=== PATIENT | female | born 1995 | race Caucasian/White ===

== ENCOUNTER 2017-07-03 12:54 | Emergency (ER) | payer MEDICAID, OTHER ==
[2017-07-03 13:13] VITALS: BP 118/69
[2017-07-03] MEDS ORDERED: Ibuprofen 600 MG Tab PO ONE (13:54)
[2017-07-03] MEDS ORDERED: traMADol 50 MG Tab PO ONE (13:54)
[2017-07-03] MEDS ORDERED: Amoxicillin 500 MG Cap PO ONE (13:54)
--- NOTE | 2017-07-03 14:12 | EDM.PDOC ---
ED HPI GENERAL MEDICAL PROBLEM - General Chief Complaint: ENT Problem Stated Complaint: TEETH HURTING Time Seen by Provider: 07/03/17 13:36 Source of Information: Reports: Patient History Limitations: Reports: No Limitations - History of Present Illness INITIAL COMMENTS - FREE TEXT/NARRATIVE: Patient presents with tooth pain that started this morning. She has had problems with her teeth for many months and thinks it is because her wisdom teeth are coming in and causing too much crowding. She has lost two teeth completely because of this. She denies fever. She hasn't been able to see a dentist since she doesn't have dental insurance. 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 Musculoskeletal History: Reports: Fracture Psychiatric History: Reports: None - Past Surgical History Head Surgeries/Procedures: Reports: None Respiratory Surgical History: Reports: None Musculoskeletal Surgical History: Reports: None Dermatological Surgical History: Reports: None Social & Family History - Family History Family Medical History: Noncontributory - Tobacco Use Smoking Status *Q: Current Every Day Smoker Years of Tobacco use: 10 Packs/Tins Daily: 0.5 Second Hand Smoke Exposure: No - Caffeine Use Caffeine Use: Reports: Coffee, Energy Drinks, Soda, Tea - Recreational Drug Use Recreational Drug Use: Yes Drug Use in Last 12 Months: No Recreational Drug Type: Reports: Marijuana/Hashish Recreational Drug Use Frequency: Not Used In Over 1 Year ED ROS ENT - Review of Systems Review Of Systems: See Below Constitutional: Denies: Fever, Chills HEENT: Denies: Throat Pain Respiratory: Denies: Shortness of Breath, Cough Cardiovascular: Reports: No Symptoms GI/Abdominal: Denies: Abdominal Pain, Vomiting : Denies: Dysuria, Flank Pain Musculoskeletal: Reports: No Symptoms Skin: Denies: Cyanosis, Jaundice, Mottled, Pallor, Diaphoresis Neurological: Denies: Confusion, Dizziness, Headache Psychiatric: Denies: Agitation, Anxiety ED EXAM, ENT - Physical Exam Exam: See Below Exam Limited By: No Limitations General Appearance: Alert, WD/WN, No Apparent Distress Eye Exam: Bilateral Eye: EOMI, Normal Inspection, PERRL Ears: Normal External Exam, Hearing Grossly Normal Nose: Normal Inspection, No Blood Mouth/Throat: Normal Oropharynx, Dental Pain (tender to palpation of right anterior maxillary gums and posterior molar regions), Dental Tenderness, Other ( Significant periodontal disease with multiple missing or partially missing teeth. ) Head: Atraumatic, Normocephalic Neck: Non-Tender, Full Range of Motion Respiratory/Chest: No Respiratory Distress, Lungs Clear, Normal Breath Sounds Cardiovascular: Regular Rate, Rhythm, No Murmur Extremities: Normal Range of Motion, No Pedal Edema Neurological: Alert, Oriented, Normal Cognition, No Motor/Sensory Deficits Psychiatric: Normal Affect, Normal Mood Skin: Warm, Dry, Intact, Normal Color, No Rash Course - Vital Signs Last Recorded V/S: Last Vital Signs Temp 98.2 F 07/03/17 13:11 Pulse 91 07/03/17 13:11 Resp 16 07/03/17 13:11 BP 118/69 07/03/17 13:11 Pulse Ox 100 07/03/17 13:11 - Orders/Labs/Meds Meds: Medications Discontinued Medications Generic Name Dose Route Start Last Admin Trade Name Jose Aq PRN Reason Stop Dose Admin Amoxicillin 2,000 mg 07/03/17 13:54 Amoxil PO 07/03/17 13:55 ONETIME ONE Ibuprofen 2,400 mg 07/03/17 13:54 Motrin PO 07/03/17 13:55 ONETIME ONE Tramadol HCl 150 mg 07/03/17 13:54 Ultram PO 07/03/17 13:55 ONETIME ONE - Re-Assessments/Exams Free Text/Narrative Re-Assessment/Exam: 07/03/17 14:18 Discussed findings, expectations and treatment plan with patient. I advised, along with the antibiotic, to use the ibuprofen as primary pain control and the tramadol when more is needed. Also strongly encourage dental treatment JERRY. Patient discharged in stable condition. Departure - Departure Time of Disposition: 14:05 Disposition: Home, Self-Care 01 Condition: Good Clinical Impression: Tooth pain, Periodontitis - Discharge Information Forms: ED Department Discharge Additional Instructions: 1. Drink 8 cups of water daily. 2. Take the amoxicillin as directed. 3. Take the Ibuprofen as directed for primary pain control. 4. Take the Tramadol as directed if Ibuprofen doesn't reduce pain to a tolerable level. 5. Try to get in to a dentist in the near future for treatment.
== END 2017-07-03 14:20 | disposition home or self-care (01) ==
LOC: KA.ED 12:54
DX: K05.30 Chronic periodontitis, unspecified (principal); F17.210 Nicotine dependence, cigarettes, uncomplicated; J45.909 Unspecified asthma, uncomplicated
CPT/HCPCS: 99282; A9270

== ENCOUNTER 2017-10-27 14:53 | Emergency (ER) | payer BC, MEDICAID ==
[2017-10-27 15:09] VITALS: BP 135/84
--- NOTE | 2017-10-27 15:46 | EDM.PDOC ---
ED HPI GENERAL MEDICAL PROBLEM - General Chief Complaint: Upper Extremity Injury/Pain Stated Complaint: TOOTHACHE Time Seen by Provider: 10/27/17 15:41 Source of Information: Reports: Patient History Limitations: Reports: No Limitations - History of Present Illness INITIAL COMMENTS - FREE TEXT/NARRATIVE: PATIENT IS A 22-YEAR-OLD FEMALE WHO PRESENTS TO THE EMERGENCY DEPARTMENT THIS AFTERNOON WITH A COMPLAINT OF DENTAL PAIN AND BILATERAL HAND PAIN. PATIENT STATES DENTAL PAIN IS OF CHRONIC NATURE AND HAS NOT SEEN A DENTIST IN QUITE SOME TIME. DENIES DIFFICULTY SWALLOWING, FEVER, OR ANY TRAUMA. PATIENT ALSO DESCRIBES BILATERAL HAND PAIN. STATES THAT THIS IS CAUSED WHEN WORKING WITH SMALL OBJECTS AT WORK. 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 Onset: Gradual Duration: Chronic Location: Reports: Face Quality: Reports: Ache Severity: Mild Improves with: Reports: None Worsens with: Reports: Other (HOT/COLD FOOD) Context: Reports: Activity (WHEN HAND MANIPULATING EQUIPMENT AT WORK) Associated Symptoms: Reports: No Other Symptoms Treatments CAFE HELPER: Reports: NSAIDS Bilateral Hand Pain Score (Numeric/FACES): 8 Oral/Mouth Pain Score (Numeric/FACES): 8 - Related Data Allergies Allergy/AdvReac Type Severity Reaction Status Date / Time No Known Allergies Allergy Verified 10/27/17 15:11 Home Meds: Home Meds Albuterol [Proair HFA] 2 puff INH ASDIRECTED PRN 07/03/17 [History] Albuterol/Ipratropium [Combivent Respimat] 1 puff INH BID 07/03/17 [History] Amoxicillin 500 mg PO TID #21 capsule 10/27/17 [Rx] Montelukast Sodium [Singulair] 10 mg PO DAILY 10/27/17 [History] Past Medical History Respiratory History: Reports: Asthma 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 Musculoskeletal History: Reports: Fracture Psychiatric History: Reports: None - Past Surgical History Head Surgeries/Procedures: Reports: None Respiratory Surgical History: Reports: None Musculoskeletal Surgical History: Reports: None Dermatological Surgical History: Reports: None Social & Family History - Family History Family Medical History: Noncontributory - Tobacco Use Smoking Status *Q: Current Every Day Smoker Years of Tobacco use: 10 Packs/Tins Daily: 0.5 Second Hand Smoke Exposure: No - Caffeine Use Caffeine Use: Reports: Coffee, Energy Drinks, Soda, Tea - Recreational Drug Use Recreational Drug Use: Yes Drug Use in Last 12 Months: No Recreational Drug Type: Reports: Marijuana/Hashish Recreational Drug Use Frequency: Not Used In Over 1 Year Review of Systems - Review of Systems Review Of Systems: ROS reveals no pertinent complaints other than HPI. Constitutional: Reports: No Symptoms Eyes: Reports: No Symptoms Ears: Reports: No Symptoms Nose: Reports: No Symptoms Mouth/Throat: Reports: Pain (POSTERIOR LOWER JAW.). Denies: Lip Swelling, Tongue Swelling, Throat Swelling, Muffled Voice, Difficulty Swallowing, Painful Swallowing Respiratory: Reports: No Symptoms Cardiovascular: Reports: No Symptoms GI/Abdominal: Reports: No Symptoms Genitourinary: Reports: No Symptoms Musculoskeletal: Reports: Hand Pain (BILATERALLY) Skin: Reports: No Symptoms Neurological: Reports: No Symptoms Psychiatric: Reports: No Symptoms ED EXAM, GENERAL - Physical Exam Exam: See Below Exam Limited By: No Limitations General Appearance: Alert, WD/WN, No Apparent Distress Nose: Normal Inspection, Normal Mucosa, No Blood Throat/Mouth: Normal Lips, Normal Gums, Normal Oropharynx, Normal Voice, No Airway Compromise, Other (EXTENSIVE DENTAL EROSION AND CARIES WITHOUT DENTAL ABSCESS, OROPHARYNGEAL ABSCESS.) Neck: Normal Inspection. No: Lymphadenopathy (L), Lymphadenopathy (R) Respiratory/Chest: No Respiratory Distress, Lungs Clear, Normal Breath Sounds Cardiovascular: Regular Rate, Rhythm, No Murmur Extremities: Normal Range of Motion, Normal Capillary Refill, Other (BILATERAL HAND TINEL AND PHALEN SIGNS ARE BOTH NEGATIVE) Neurological: Alert, Oriented, Normal Cognition Psychiatric: Normal Affect, Normal Mood Skin Exam: Warm, Dry, Intact, Normal Color, No Rash Lymphatic: No Adenopathy Course - Vital Signs Last Recorded V/S: Last Vital Signs Temp 99.5 F 10/27/17 15:05 Pulse 96 10/27/17 15:05 Resp 16 10/27/17 15:05 BP 135/84 10/27/17 15:05 Pulse Ox 99 10/27/17 15:05 - Re-Assessments/Exams Free Text/Narrative Re-Assessment/Exam: 10/27/17 15:51 PATIENT AFEBRILE, NONTOXIC APPEARING, VITAL SIGNS STABLE. TEST NEGATIVE FOR CARPAL TUNNEL. PATIENT WILL BE GIVEN ANTIBIOTICS FOR DENTAL CONCERNS AND RECOMMENDED FOLLOW-UP WITH DENTIST. Departure - Departure Time of Disposition: 15:54 Disposition: Home, Self-Care 01 Condition: Good Clinical Impression: Tooth pain, Dental caries Wrist pain, acute Qualifiers: Laterality: unspecified laterality Qualified Code(s): M25.539 - Pain in unspecified wrist - Discharge Information Instructions: Dental Caries, [id number], Wrist Pain Referrals: PCP,None [Primary Care Provider] - Additional Instructions: FOLLOW-UP WITH DENTIST IN NEXT 2-3 DAYS. ALSO FOLLOW-UP AT [facility] FOR WRIST [facility]ALUATION. - Assessment/Plan Assessment:: DENTAL PAIN, DENTAL CARIES, WRIST PAIN. Plan: FOLLOW-UP WITH DENTIST, AND [facility].
== END 2017-10-27 16:05 | disposition home or self-care (01) ==
LOC: KA.ED 14:53
DX: K03.2 Erosion of teeth (principal); K02.9 Dental caries, unspecified; M25.531 Pain in right wrist; M25.532 Pain in left wrist; J45.909 Unspecified asthma, uncomplicated; Z79.899 Other long term (current) drug therapy; F17.210 Nicotine dependence, cigarettes, uncomplicated
CPT/HCPCS: 99283

== ENCOUNTER 2018-01-31 23:15 | Emergency (ER) | payer BC, MEDICAID ==
[2018-01-31] MEDS ORDERED: Ketorolac 60 MG/2 ML SDV ONE (23:22)
[2018-01-31] MEDS ORDERED: Acetaminophen 500 MG Tab ONE (23:22)
[2018-01-31] MEDS ORDERED: Acetaminophen 500 MG Tab PO ONE (23:29)
[2018-01-31 23:37] VITALS: BP 136/73
[2018-01-31] MEDS ORDERED: Amoxicillin/Clavulanate K 875-125 MG Tab PO SCH (23:45)
[2018-01-31] MEDS ORDERED: traMADol 50 MG Tab PO PRN (23:55)
[2018-02-01] MEDS ORDERED: Amoxicillin/Clavulanate K 875-125 MG Tab ONE (00:05)
--- NOTE | 2018-02-01 00:05 | EDM.PDOC ---
ED HPI GENERAL MEDICAL PROBLEM - General Chief Complaint: General Stated Complaint: tooth pain Time Seen by Provider: 01/31/18 23:41 Source of Information: Reports: Patient History Limitations: Reports: No Limitations - History of Present Illness INITIAL COMMENTS - FREE TEXT/NARRATIVE: Patient presents with tooth/dental pain for the past couple days. She had a wisdom tooth pulled by her dentist two weeks and is scheduled to see him tomorrow morning for follow up and figure out when she can get the other wisdom teeth removed. She was on antibiotics for the teeth two weeks ago also. She has taken Ibuprofen prn for the pain and had some several hours ago. She has had poor teeth ever since childhood and denies any recent drug use. She has only used marijuana in the remote past. Treatments CAGE MAKER: Reports: NSAIDS, Other Medication(s) Other Treatments CAGE MAKER: Took 2 ibuprofen this afternoon with no relief. - Related Data Allergies Allergy/AdvReac Type Severity Reaction Status Date / Time No Known Allergies Allergy Verified 11/23/17 18:59 Home Meds: Home Meds Albuterol [Proair HFA] 2 puff INH ASDIRECTED PRN 07/03/17 [History] Montelukast Sodium [Singulair] 10 mg PO DAILY 10/27/17 [History] Ibuprofen [Advil] 400 mg PO Q6H PRN 11/23/17 [History] Past Medical History HEENT History: Reports: Other (See Below) Other HEENT History: Extensive dental work. 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 Musculoskeletal History: Reports: Fracture Psychiatric History: Reports: None - Past Surgical History HEENT Surgical History: Reports: Oral Surgery Respiratory Surgical History: Reports: None Musculoskeletal Surgical History: Reports: None Social & Family History - Family History Family Medical History: Noncontributory - Tobacco Use Smoking Status *Q: Current Every Day Smoker Years of Tobacco use: 10 Packs/Tins Daily: 0.5 Second Hand Smoke Exposure: No - Caffeine Use Caffeine Use: Reports: Coffee, Energy Drinks, Soda, Tea - Recreational Drug Use Recreational Drug Use: Yes Drug Use in Last 12 Months: No Recreational Drug Type: Reports: Marijuana/Hashish Recreational Drug Use Frequency: Not Used In Over 1 Year ED ROS GENERAL - Review of Systems Review Of Systems: See Below Constitutional: Reports: Fever (she feels like she has had a little fever occasionally but hasn't checked temp). Denies: Weakness, Diaphoresis HEENT: Reports: Dental Pain, Ear Pain (right ear hurts extending from jaw) Respiratory: Denies: Shortness of Breath, Cough Cardiovascular: Denies: Chest Pain, Lightheadedness, Syncope GI/Abdominal: Denies: Abdominal Pain, Vomiting : Reports: No Symptoms Musculoskeletal: Reports: No Symptoms Skin: Denies: Cyanosis, Jaundice, Mottled, Pallor, Diaphoresis Neurological: Denies: Confusion, Seizure, Syncope, Trouble Speaking, Difficulty Walking Psychiatric: Denies: Agitation, Anxiety, Confusion ED EXAM, GENERAL - Physical Exam Exam: See Below Exam Limited By: No Limitations General Appearance: Alert, WD/WN, No Apparent Distress Eye Exam: Bilateral Eye: EOMI, Normal Inspection, PERRL Ears: Normal External Exam, Normal Canal, Hearing Grossly Normal, Normal TMs Ear Exam: Bilateral Ear: Auricle Normal, Canal Normal, TM normal Nose: Normal Inspection, No Blood Throat/Mouth: Normal Lips, Normal Oropharynx, Normal Voice, No Airway Compromise , Other (lower right molar is mostly eroded and abscessed and the region is tender to palpation; overall very poor dentition of majority of molars primarily ) Head: Atraumatic, Normocephalic Neck: Normal Inspection, Supple, Non-Tender, Full Range of Motion. No: Lymphadenopathy (L), Lymphadenopathy (R) Respiratory/Chest: No Respiratory Distress, Lungs Clear, Normal Breath Sounds, No Accessory Muscle Use Cardiovascular: Regular Rate, Rhythm, No Murmur GI/Abdominal: Soft, Non-Tender, No Distention Back Exam: No: CVA Tenderness (L), CVA Tenderness (R) Extremities: Normal Inspection, Normal Range of Motion Neurological: Alert, Oriented, Normal Cognition, No Motor/Sensory Deficits Psychiatric: Normal Affect, Normal Mood Skin Exam: Warm, Dry, Intact, Normal Color, No Rash Course - Vital Signs Last Recorded V/S: Last Vital Signs Temp 99.1 F 01/31/18 23:20 Pulse 80 01/31/18 23:20 Resp 18 01/31/18 23:20 BP 136/73 01/31/18 23:20 Pulse Ox 97 01/31/18 23:20 - Orders/Labs/Meds Orders: Active Orders 24 hr Category Date Time Status Amoxicillin/Clavulanate K [Augmentin 875 MG/125 MG] Med 01/31/18 23:45 Ordered 1 tab PO Q12HR traMADol [Ultram] Med 01/31/18 23:55 Ordered 50 mg PO Q6H PRN Medication Orders Amoxicillin/Clavulanate Potassium (Augmentin 875 Mg/125 Mg) 1 tab PO Q12HR BENSON Stop: 02/01/18 23:46 Tramadol HCl (Ultram) 50 mg PO Q6H PRN PRN Reason: Tooth pain Meds: Medications Generic Name Dose Route Start Last Admin Trade Name Freq PRN Reason Stop Dose Admin Amoxicillin/Clavulanate Potassium 1 tab 01/31/18 23:45 Augmentin 875 Mg/125 Mg PO 02/01/18 23:46 Q12HR BENSON Tramadol HCl 50 mg 01/31/18 23:55 Ultram PO Q6H PRN Tooth pain Discontinued Medications Generic Name Dose Route Start Last Admin Trade Name Freq PRN Reason Stop Dose Admin Acetaminophen Confirm 01/31/18 23:22 01/31/18 23:30 Tylenol Extra Strength Administered 01/31/18 23:23 1,000 mg Dose Administration 1,000 mg .ROUTE .STK-MED ONE Ketorolac Tromethamine Confirm 01/31/18 23:22 01/31/18 23:29 Toradol Administered 01/31/18 23:23 60 mg Dose Administration 60 mg .ROUTE .STK-MED ONE - Re-Assessments/Exams Free Text/Narrative Re-Assessment/Exam: 02/01/18 00:12 Twenty minutes after administration of toradol and tylenol, pain started to subside in the ear. We discussed findings and treatment plan, especially the need for detailed discussion with her dentist about the plan going forward. Patient given dose of Augmentin in ER and sent home with a dose for morning before she sees the dentist; also four doses of Tramadol 50 mg q6h prn. Patient discharged to home in stable condition. Departure - Departure Time of Disposition: 23:58 Disposition: Home, Self-Care 01 Condition: Good Clinical Impression: Tooth abscess - Discharge Information Instructions: Dental Abscess, [id number] Additional Instructions: 1. Take the antibiotic and pain medications as directed. 2. Follow up with your dentist tomorrow as planned and ask if you need continuing antibiotics or pain medication, as well as the longer term plan for your teeth. - My Orders Last 24 Hours: My Active Orders 01/31/18 23:45 Amoxicillin/Clavulanate K [Augmentin 875 MG/125 MG] 1 tab PO Q12HR 01/31/18 23:55 traMADol [Ultram] 50 mg PO Q6H PRN - Assessment/Plan Last 24 Hours: My Active Orders 01/31/18 23:45 Amoxicillin/Clavulanate K [Augmentin 875 MG/125 MG] 1 tab PO Q12HR 01/31/18 23:55 traMADol [Ultram] 50 mg PO Q6H PRN
[2018-02-01] MEDS ORDERED: Amoxicillin/Clavulanate K 875-125 MG Tab PO SCH ×2 (00:15)
[2018-02-01] MEDS ORDERED: Ketorolac 60 MG/2 ML SDV IM ONE (01:51)
== END 2018-02-01 00:15 | disposition home or self-care (01) ==
LOC: KA.ED 23:15
DX: K04.7 Periapical abscess without sinus (principal); F17.210 Nicotine dependence, cigarettes, uncomplicated; Z79.899 Other long term (current) drug therapy
CPT/HCPCS: 96372; 99282; A9270-GY; J1885

== ENCOUNTER 2021-01-26 18:45 | Emergency (ER) | payer BC ==
[2021-01-26 19:04] VITALS: BP 119/88; PULSE 96
--- NOTE | 2021-01-26 19:35 | EDM.PDOC ---
ED HPI GENERAL MEDICAL PROBLEM - General Chief Complaint: Eye Problems Stated Complaint: LEFT EYE INJURY Time Seen by Provider: 01/26/21 19:00 Source of Information: Reports: Patient History Limitations: Reports: No Limitations - History of Present Illness INITIAL COMMENTS - FREE TEXT/NARRATIVE: 25-year-old male presents to the emergency room with a painful red eye. She was brushing her 9-month daughters gums today when she was accidentally struck her in the left eye by her daughter's finger. Had immediate tearing, redness, and pain. She tried to take a nap but upon awaking continue to have pain, discomfort and tearing. She now presents to the emergency room for further evaluation. She is otherwise healthy. She is only had 1 child 1 one delivery. No past medical history. Onset: Today Onset Date: 01/26/21 Onset Time: 14:00 Duration: Hour(s):, Constant Location: Reports: Other (Left eye) Quality: Reports: Burning, Other (Hearing) Severity: Moderate Improves with: Reports: None Worsens with: Reports: None Associated Symptoms: Reports: No Other Symptoms Left Eye Pain Score (Numeric/FACES): 8 - Related Data Allergies Allergy/AdvReac Type Severity Reaction Status Date / Time No Known Allergies Allergy Verified 01/26/21 19:04 Home Meds: Home Meds [id number]/Iron/FA/O3/Dha/Epa/Fish [ Multi-Dha Softgel] 1 cap PO DAILY 05/24/19 [History] Past Medical History HEENT History: Reports: Impaired Vision, Other (See Below) Other HEENT History: History of Multiple caries. Patient wears glasses. Cardiovascular History: Reports: None Respiratory History: Reports: Asthma, Bronchitis, Recurrent Genitourinary History: Reports: None LIMNOLOGIST History: Reports: , Spontaneous , Other (See Below) Other LIMNOLOGIST History: LMP certain on 02/20/19 with current blighted ovum diagnosed by OB ultrasound on 04/2519. SAB during first trimester not requiring procedure. Previous history of abnormal irregular periods but not currently. Musculoskeletal History: Reports: Fracture, Other (See Below) Other Musculoskeletal History: History of multiple injuries secondary to suicide attempt at age 14 as below including head concussion, multiple rib fracturesside unknown, right ankle fracture and 2 finger fractures of her right hand with no surgery required. Neurological History: Reports: Concussion, Head Trauma, Other (See Below) Other Neuro History: Head concussion at age 14 as above/below Psychiatric History: Reports: Addiction, Anxiety, Depression, Psych Hospital ization(s), Suicide Attempt, Suicidal Ideation, Other (See Below) Other Psychiatric History: Anxiety depression disorder since age 14 with suicide attempt at that time with the patient jumping off a balcony with multiple injuries as above. She also has recurrent gesture reactions, including cutting her arms, etc. Note previous psychiatric hospitalization at age 14. Illicit drug, alcohol, tobacco use as below Hematologic History: Reports: None Dermatologic History: Reports: None - Infectious Disease History Infectious Disease History: Reports: Influenza - Past Surgical History Head Surgeries/Procedures: Reports: None HEENT Surgical History: Reports: Oral Surgery, Other (See Below) Other HEENT Surgeries/Procedures: [employer] teeth extraction 2 in December 2017 with multiple previous teeth extractions Respiratory Surgical History: Reports: None Musculoskeletal Surgical History: Reports: None Dermatological Surgical History: Reports: None - Past Imaging History Past Imaging History: Reports: Ultrasound (OB ultrasound on 05/09/19.) Social & Family History - Family History Family Medical History: No Pertinent Family History - Tobacco Use Tobacco Use Status *Q: Former Tobacco User Used Tobacco, but Quit: Yes Month/Year Tobacco Last Used: 09/2019 Second Hand Smoke Exposure: No - Caffeine Use Caffeine Use: Reports: Coffee, Soda Caffeine Use Comment: 2 per day - Recreational Drug Use Recreational Drug Use: No - Living Situation & Occupation Living situation: Reports: Single, Alone (However current significant other relationship) Occupation: Employed ([employer]) ED ROS GENERAL - Review of Systems Review Of Systems: See Below Constitutional: Reports: No Symptoms HEENT: Reports: Eye Discharge (Left eye tearing), Eye Pain, Glasses, Vision Change (Left eye) Respiratory: Reports: No Symptoms Cardiovascular: Reports: No Symptoms Endocrine: Reports: No Symptoms GI/Abdominal: Reports: No Symptoms : Reports: No Symptoms Musculoskeletal: Reports: No Symptoms Skin: Reports: No Symptoms Neurological: Reports: No Symptoms Psychiatric: Reports: No Symptoms Hematologic/Lymphatic: Reports: No Symptoms Immunologic: Reports: No Symptoms ED EXAM GENERAL W FULL EYE - Physical Exam Exam: See Below Exam Limited By: No Limitations General Appearance: Alert, WD/WN, No Apparent Distress Eye Exam: Left Eye: Vision Changes, Bilateral Eye: EOMI, PERRL Visual Acuity (R) 20/: 70 Visual Acuity (L) 20/: 200 With Correction: No Eyelids: Bilateral: Normal Appearance Conjunctiva & Sclera: Right: Normal Appearance, Left: Injected Cornea Exam: Right: Normal Appearance, Left: Corneal Abrasion Extraocular Movements: Bilateral: Intact Pupils: Normal Accommodation Pupillary Size: Bilateral: 3 mm Pupillary Reaction: Bilateral: Brisk Ears: Normal TMs Nose: Normal Inspection Throat/Mouth: Normal Voice, No Airway Compromise Head: Atraumatic, Normocephalic Neck: Normal Inspection Back Exam: Normal Inspection Extremities: Normal Inspection Neurological: Alert, Oriented, No Motor/Sensory Deficits Psychiatric: Normal Affect, Normal Mood Skin Exam: Warm, Dry, Intact, Normal Color Course - Vital Signs Last Recorded V/S: Last Vital Signs Temp 97.6 F 01/26/21 18:57 Pulse 96 01/26/21 18:57 Resp 14 01/26/21 18:57 BP 119/88 01/26/21 18:57 Pulse Ox 100 01/26/21 18:57 - Orders/Labs/Meds Orders: Active Orders 24 hr Category Date Time Status Bacitracin/Neomycin/Polymyxin [Triple Antibiotic Oint] Med 01/26/21 21:00 Ordered 1 each TOP TID Dexameth/Neomycin/Polymyxin B [Maxitrol Ophth Susp] Med 01/26/21 19:45 Active 5 ml EYELF ASDIRECTED Medication Orders Neomycin/Polymyxin/Bacitracin (Bacitracin/Neomycin/Polymyxin B Oint 0.9 Gm U/D Packet) 1 each TOP TID BENSON Neomycin/Polymyxin/Dexamethasone (Dexamethasone/Neomycin/Polymyxin B Ophth Susp 5 Ml Bottle) 5 ml EYELF ASDIRECTED [facility] Meds: Medications Generic Name Dose Route Start Last Admin Trade Name Freq PRN Reason Stop Dose Admin Neomycin/Polymyxin/Bacitracin 1 each 01/26/21 21:00 Bacitracin/Neomycin/Polymyxin B Oint 0.9 Gm U/D Packet TOP TID BENSON Neomycin/Polymyxin/Dexamethasone 5 ml 01/26/21 19:45 Dexamethasone/Neomycin/Polymyxin B Ophth Susp 5 Ml Bottle EYELF ASDIRECTED BENSON Discontinued Medications Generic Name Dose Route Start Last Admin Trade Name Freq PRN Reason Stop Dose Admin Tetracaine HCl 4 ml 01/26/21 19:34 Tetracaine Hcl/Pf 0.5% 4 Ml Bottle EYELF 01/26/21 19:35 ASDIRECTED ONE - Re-Assessments/Exams Free Text/Narrative Re-Assessment/Exam: 01/26/21 19:40 Patient had immediate relief for left eye pain with tetracaine. Departure - Departure Time of Disposition: 19:50 Disposition: Home, Self-Care 01 Condition: Good Clinical Impression: Corneal abrasion Qualifiers: Encounter type: initial encounter Laterality: left Qualified Code(s): S05.02XA - Injury of conjunctiva and corneal abrasion without foreign body, left eye, initial encounter - Discharge Information Instructions: Corneal Abrasion Referrals: Meri Jacobson [employer] [Primary Care Provider] - Forms: ED Department Discharge Care Plan Goals: 1. Follow-up with ophthalmology tomorrow. 2. Ibuprofen 800 mg for pain to 8 hours as needed. 3. Antibiotic eyedrops Nasim neomycin and polymyxin B sulfates dexamethasone ophthalmology suspension 1 to 2 drops in the left eye 3 times a day. Sepsis Event Note (ED) - Evaluation Sepsis Screening Result: No Definite Risk - Focused Exam Vital Signs: Vital Signs Temp Pulse Resp BP Pulse Ox 01/26/21 18:57 97.6 F 96 14 119/88 100 - My Orders Last 24 Hours: My Active Orders 01/26/21 19:45 Dexameth/Neomycin/Polymyxin B [Maxitrol Ophth Susp] 5 ml EYELF ASDIRECTED 01/26/21 21:00 Bacitracin/Neomycin/Polymyxin [Triple Antibiotic Oint] 1 each TOP TID - Assessment/Plan Last 24 Hours: My Active Orders 01/26/21 19:45 Dexameth/Neomycin/Polymyxin B [Maxitrol Ophth Susp] 5 ml EYELF ASDIRECTED 01/26/21 21:00 Bacitracin/Neomycin/Polymyxin [Triple Antibiotic Oint] 1 each TOP TID Assessment:: Left eye corneal abrasion Plan: 1. Follow-up with ophthalmology tomorrow. 2. Ibuprofen 800 mg for pain to 8 hours as needed. 3. Neomycin polymyxin B sulfate and dexamethasone ophthalmology suspension 1 to 2 drops 3 times daily.
[2021-01-26] MEDS: Dexamethasone/Neomycin/Polymyxin B Ophth Susp 5 ML Bottle EYELF SCH (19:47)
[2021-01-26] MEDS: Tetracaine HCl/PF 0.5% 4 ML Bottle EYELF ONE (19:48)
[2021-01-26] MEDS ORDERED: Bacitracin/Neomycin/Polymyxin B Oint 0.9 GM U/D Packet TOP SCH (21:00)
== END 2021-01-26 19:45 | disposition home or self-care (01) ==
LOC: KA.ED 18:45
DX: S05.02XA Injury of conjunctiva and corneal abrasion without foreign body, left eye, initial encounter (principal); J45.909 Unspecified asthma, uncomplicated; Z87.891 Personal history of nicotine dependence; W50.0XXA Accidental hit or strike by another person, initial encounter
CPT/HCPCS: 99283; A9270-GY

== ENCOUNTER 2025-02-09 15:38 | Emergency (ER) | payer BC ==
[2025-02-09] MEDS: Ondansetron 4 MG/2 ML SDV IVPUSH ONE (16:00)
[2025-02-09] MEDS: Sodium Chloride 0.9% 1,000 ML IV ONE ×2 (16:00→16:31)
[2025-02-09 16:22] LABS: BASOPHILS ABSOLUTE AUTO 0.03 10^3/uL (0.00-0.10); BASOPHILS PERCENT AUTO 0.5 % (0.0-1.0); EOSINOPHILS ABSOLUTE AUTO 0.38 10^3/uL (0.10-0.30); EOSINOPHILS PERCENT AUTO 5.8 % (1.0-3.0); HEMATOCRIT 45.7 % (37.0-47.0); HEMOGLOBIN 15.6 g/dL (12.0-16.0); IMMATURE GRAN ABSOLUTE AUTO 0.01 10^3/uL (0.00-0.04); IMMATURE GRAN PERCENT AUTO 0.2 % (0.0-0.4); LYMPHOCYTES ABSOLUTE AUTO 2.61 10^3/uL (1.00-4.00); MEAN CORPUSCULAR HEMOGLOBIN 29.4 pg (27.0-31.0); MEAN CORPUSCULAR HGB CONC 34.1 g/dL (32.0-36.0); MEAN CORPUSCULAR VOLUME 86.1 fL (82.0-92.0); MEAN PLATELET VOLUME 8.8 fL (7.4-10.4); MONOCYTES ABSOLUTE AUTO 0.49 10^3/uL (0.10-0.80); MONOCYTES PERCENT AUTO 7.5 % (2.0-8.0); PLATELET COUNT,PLT 279 10^3/uL (150-400); RED BLOOD CELL COUNT 5.31 10^6/uL (3.80-5.50); RED CELL DISTRIBUTION WIDTH 11.5 % (11.5-14.5); WHITE BLOOD CELL COUNT,WBC 6.52 10^3/uL (5.00-10.00)
[2025-02-09 16:31] LABS: APPEARANCE,URINE CLEAR (CLEAR); BILIRUBIN,URINE NEGATIVE (NEGATIVE); COLOR,URINE YELLOW (YELLOW); GLUCOSE,URINE NEGATIVE (NEGATIVE); KETONES,URINE NEGATIVE (NEGATIVE); LEUKOCYTE ESTERASE,URINE NEGATIVE (NEGATIVE); NITRITE,URINE NEGATIVE (NEGATIVE); OCCULT BLOOD,URINE NEGATIVE (NEGATIVE); PROTEIN,URINE NEGATIVE (NEGATIVE); UROBILINOGEN,URINE 0.2 E.U./dL (0.2-1.0)
[2025-02-09 16:39] LABS: ALANINE AMINOTRANSFERASE,ALT 23 U/L (14-63); ALBUMIN 4.41 g/dL (3.40-5.00); ALKALINE PHOSPHATASE 55 U/L (46-116); ANION GAP 10.2 mmol/L (5-15); ASPARTATE AMNIOTRANSFERASE,AST 26 U/L (15-37); BILIRUBIN TOTAL 0.5 mg/dL (0.2-1.0); BLOOD UREA NITROGEN,BUN 9 mg/dL (7-18); CALCIUM 9.5 mg/dL (8.7-10.3); CARBON DIOXIDE,CO2 29.9 mmol/L (21.0-32.0); CHLORIDE,CL 102 mmol/L (98-107); CREATININE 0.63 mg/dL (0.51-1.17); EST CRCL DRUG DOSING (CG) 116.05 mL/min; GLUCOSE RANDOM 72 mg/dL (70-140); LIPASE 34 U/L (16-77); POTASSIUM,K 4.1 mmol/L (3.5-5.1); SODIUM,NA 138 mmol/L (136-145)
[2025-02-09 16:45] LABS: C-REACTIVE PROTEIN < 0.50 mg/dL (0.00-0.50); ESTIMATED GFR 123 mL/min (>=60)
[2025-02-09] MEDS: Iopamidol 755 Mg/ML 100 ML Bottle IV ONE (17:40)
[2025-02-09] MEDS: Sodium Chloride 0.9% 50 ML IV SCH (17:40)
[2025-02-09 19:28] VITALS: BP 122/87; PULSE 74
== END 2025-02-09 19:30 | disposition home or self-care (01) ==
LOC: KA.ED 15:38
DX: R19.7 Diarrhea, unspecified (principal); R10.32 Left lower quadrant pain; Z88.8 Allergy status to other drugs, medicaments and biological substances; Z79.899 Other long term (current) drug therapy; Z87.891 Personal history of nicotine dependence
CPT/HCPCS: 74177; 80053; 81003; 83690; 85025; 86140; 96360; 99284; 99284-25; J3490; J7030; Q9967